=== PATIENT | male | born 1955 | race African-American/Black ===

== ENCOUNTER 2017-12-22 18:27 | Observation (INO) | payer BC ==
[2017-12-22 19:35] LABS: ABS Basophils 0.1 10^3/ul (0-0.2); ABS Eosinophils 0.3 10^3/ul (0-0.6); ABS Lymphocytes 1.8 10^3/ul (1.0-4.8); ABS Monocytes 0.5 10^3/ul (0-0.8); ABS Neutrophils 2.4 10^3/ul (1.5-7.7); ABS Nucleated RBC 0 10^3/ul; Eosinophil % 5.5 % (0-6); Hematocrit 46 % (42-52); Lymphocyte % 35.2 % (25-47); Mean Corpuscular HGB Conc 35 g/dl (31-36); Mean Corpuscular Hemoglobin 32 pg (27-31); Mean Corpuscular Volume 91 fL (80-94); Mean Platelet Volume 9.1 um3 (7.4-10.4); Nucleated Red Blood Cells % 0.1; Platelet Count 177 10^3/ul (150-450); Red Blood Count 5.05 10^6/ul (4.00-5.40); Red Cell Distribution Width 14 % (10.5-15)
[2017-12-22 19:54] LABS: EGFR Non-African American 53.7 (>60)
[2017-12-22 20:04] LABS: Urine Appearance Clear; Urine Blood Negative (Negative); Urine Color Straw; Urine Ketones Negative (Negative); Urine Protein Negative (Negative); Urine Specific Gravity 1.003 (1.010-1.030); Urine Urobilinogen Negative (Negative)
--- NOTE | 2017-12-22 20:04 | RAD ---
INDICATION: Cough COMPARISON: None TECHNIQUE: PA and lateral dual-energy views were obtained. FINDINGS: Bones/Soft Tissues: There are no acute bony findings. There is sternotomy. Additional clips project over the right upper chest. Cardiomediastinal: The cardiomediastinal silhouette is normal. Lungs: There are no infiltrates. Pleura: There are no pleural effusions. Other: None IMPRESSION: POSTOPERATIVE CHANGE. NO ACTIVE DISEASE
[2017-12-22] MEDS ORDERED: Iodixanol* (CONTRAST) 320 MG/ML 100 ML SDV IV ONE (20:10)
--- NOTE | 2017-12-22 20:11 | ED ---
Shortness of Breath - HPI Summary HPI Summary: Patient with history of CABG, stents, and valve replacement complains of exertional SOB 2 months, exertional chest tightness 2-3 weeks, and cough, congestion 2 weeks. Episode of chest tightness last night lasting 30-45 minutes on left side, no radiation. Complains of increase in urinary frequency. Patient denies fever, ear pain, CHRISTIANSON, sore throat, N/V/D, diaphoresis , abdominal pain, change in urine or BM. Medical history is CABG, stents, HTN. Patient has also been told he needs to be evaluated for diabetes, but has not followed up. C/o of recent increased urine output. Patient is nonsmoker, denies EtOH and illegal drugs or stimulants. Patient sees cardiology once a year, with last evaluation in the past 3 months. Patient states last stress test unknown, but believes it to be more than 2 years ago. Patient cardiology evaluations done by [facility]. - History of Current Complaint Chief Complaint: EDShortnessOfBreath Time Seen by Provider: 12/22/17 18:51 Hx Obtained From: Patient Onset/Duration: Gradual Onset Timing: Intermittent Episodes Lasting: Current Severity: Mild Associated Signs & Symptoms: Cough (Productive) - Risk Factors Pulmonary Embolism: Negative Cardiac: CAD, Diabetes, Hypertension - Allergy/Home Medications Allergies/Adverse Reactions: Allergies Allergy/AdvReac Type Severity Reaction Status Date / Time chocolate flavor Allergy Rash Verified 12/22/17 18:30 Home Medications: Home Medications Aspirin TAB* [Aspirin 325 MG TAB*] 325 mg PO DAILY 12/22/17 [History Confirmed 12/22/17] Lisinopril [Zestril 40 MG-] 40 mg PO DAILY 12/22/17 [History Confirmed 12/22/17] Metoprolol Tartrate TAB* [Lopressor TAB*] 50 mg PO BID 12/22/17 [History Confirmed 12/22/17] Potassium Chloride [Klor-Con Sprinkle] 10 meq PO DAILY 12/22/17 [History Confirmed 12/22/17] Spironolactone TAB* [Aldactone TAB*] 25 mg PO DAILY 12/22/17 [History Confirmed 12/22/17] PMH/Surg Hx/FS Hx/Imm Hx Endocrine/Hematology History: Denies: Hx Anticoagulant Therapy Cardiovascular History: Reports: Hx Coronary Artery Disease, Hx Valvular Heart Disease, Other Cardiovascular Problems/Disorders - VALVE REPLACED Respiratory History: Denies: Hx Lung Cancer History: Denies: Hx Dialysis Musculoskeletal History: Denies: Hx Gout EENT History: Denies: Hx Deafness Neurological History: Denies: Hx CVA Infectious Disease History: No Infectious Disease History: Denies: Traveled Outside the [place] in Last 30 Days - Social History Alcohol Use: None Substance Use Type: Reports: None Smoking Status (MU): Former Smoker Review of Systems Constitutional: Negative Eyes: Negative ENT: Negative Positive: Other Positive: Shortness Of Breath, Cough Gastrointestinal: Negative Positive: frequency Musculoskeletal: Negative Skin: Negative Neurological: Negative Psychological: Normal All Other Systems Reviewed And Are Negative: Yes Physical Exam Triage Information Reviewed: Yes Vital Signs On Initial Exam: Initial Vitals Temp Pulse Resp BP Pulse Ox 97.7 F 66 18 178/97 100 12/22/17 18:28 12/22/17 18:28 12/22/17 18:28 12/22/17 18:28 12/22/17 18:28 Vital Signs Reviewed: Yes Appearance: Positive: Well-Appearing Skin: Positive: Warm Head/Face: Positive: Normal Head/Face Inspection Eyes: Positive: Normal ENT: Positive: Normal ENT inspection Neck: Positive: Supple Respiratory/Lung Sounds: Positive: Clear to Auscultation Cardiovascular: Positive: RRR, Murmur. Negative: Leg Edema Left, Leg Edema Right Abdomen Description: Positive: Nontender Musculoskeletal: Positive: Normal Neurological: Positive: Normal Psychiatric: Positive: Normal AVPU Assessment: Alert - Ankur Coma Scale Best Eye Response: 4 - Spontaneous Best Motor Response: 6 - Obeys Commands Best Verbal Response: 5 - Oriented Coma Scale Total: 15 Diagnostics - Vital Signs Vital Signs Temp Pulse Resp BP Pulse Ox 12/22/17 19:17 69 22 162/92 95 12/22/17 19:00 71 18 100 12/22/17 18:47 72 15 154/97 99 12/22/17 18:46 28 12/22/17 18:28 97.7 F 66 18 178/97 100 - Laboratory Lab Results: Lab Results 12/22/17 12/22/17 12/22/17 Range/Units 19:25 19:25 19:25 WBC 5.0 (3.5-10.8) 10^3/ul RBC 5.05 (4.00-5.40) 10^6/ul Hgb 16.0 (14.0-18.0) g/dl Hct 46 (42-52) % MCV 91 (80-94) fL MCH 32 H (27-31) pg MCHC 35 (31-36) g/dl RDW 14 (10.5-15) % Plt Count 177 (150-450) 10^3/ul MPV 9.1 (7.4-10.4) um3 Neut % (Auto) 48.6 (38-83) % Lymph % (Auto) 35.2 (25-47) % [place] % (Auto) 9.5 H (0-7) % Eos % (Auto) 5.5 (0-6) % Baso % (Auto) 1.2 (0-2) % Absolute Neuts (auto) 2.4 (1.5-7.7) 10^3/ul Absolute Lymphs (auto) 1.8 (1.0-4.8) 10^3/ul Absolute Monos (auto) 0.5 (0-0.8) 10^3/ul Absolute Eos (auto) 0.3 (0-0.6) 10^3/ul Absolute Basos (auto) 0.1 (0-0.2) 10^3/ul Absolute Nucleated RBC 0 10^3/ul Nucleated RBC % 0.1 D-Dimer, Quantitative 710 H (Less Than 230) ng/mL Sodium 139 (135-145) mmol/L Potassium 3.8 (3.5-5.0) mmol/L Chloride 104 (101-111) mmol/L Carbon Dioxide 27 (22-32) mmol/L Anion Gap 8 (2-11) mmol/L BUN 13 (6-24) mg/dL Creatinine 1.34 H (0.67-1.17) mg/dL Est GFR ( Amer) 64.9 (>60) Est GFR (Non-Af Amer) 53.7 (>60) BUN/Creatinine Ratio 9.7 (8-20) Glucose 112 H (70-100) mg/dL Lactic Acid (0.5-2.0) mmol/L Calcium 9.6 (8.6-10.3) mg/dL Total Bilirubin 0.50 (0.2-1.0) mg/dL AST 16 (13-39) U/L ALT 10 (7-52) U/L Alkaline Phosphatase 73 (34-104) U/L Troponin I Pending C-Reactive Protein 15.82 H (<8.01) mg/L B-Natriuretic Peptide ( - 100) pg/mL Total Protein 7.9 (6.4-8.9) g/dL Albumin 3.8 (3.2-5.2) g/dL Globulin 4.1 H (2-4) g/dL Albumin/Globulin Ratio 0.9 L (1-3) 12/22/17 12/22/17 Range/Units 19:25 19:25 WBC (3.5-10.8) 10^3/ul RBC (4.00-5.40) 10^6/ul Hgb (14.0-18.0) g/dl Hct (42-52) % MCV (80-94) fL MCH (27-31) pg MCHC (31-36) g/dl RDW (10.5-15) % Plt Count (150-450) 10^3/ul MPV (7.4-10.4) um3 Neut % (Auto) (38-83) % Lymph % (Auto) (25-47) % [place] % (Auto) (0-7) % Eos % (Auto) (0-6) % Baso % (Auto) (0-2) % Absolute Neuts (auto) (1.5-7.7) 10^3/ul Absolute Lymphs (auto) (1.0-4.8) 10^3/ul Absolute Monos (auto) (0-0.8) 10^3/ul Absolute Eos (auto) (0-0.6) 10^3/ul Absolute Basos (auto) (0-0.2) 10^3/ul Absolute Nucleated RBC 10^3/ul Nucleated RBC % D-Dimer, Quantitative (Less Than 230) ng/mL Sodium (135-145) mmol/L Potassium (3.5-5.0) mmol/L Chloride (101-111) mmol/L Carbon Dioxide (22-32) mmol/L Anion Gap (2-11) mmol/L BUN (6-24) mg/dL Creatinine (0.67-1.17) mg/dL Est GFR ( Amer) (>60) Est GFR (Non-Af Amer) (>60) BUN/Creatinine Ratio (8-20) Glucose (70-100) mg/dL Lactic Acid 1.2 (0.5-2.0) mmol/L Calcium (8.6-10.3) mg/dL Total Bilirubin (0.2-1.0) mg/dL AST (13-39) U/L ALT (7-52) U/L Alkaline Phosphatase (34-104) U/L Troponin I C-Reactive Protein (<8.01) mg/L B-Natriuretic Peptide 84 ( - 100) pg/mL Total Protein (6.4-8.9) g/dL Albumin (3.2-5.2) g/dL Globulin (2-4) g/dL Albumin/Globulin Ratio (1-3) Result Diagrams: 12/22/17 19:25 12/22/17 19:25 Lab Statement: Any lab studies that have been ordered have been reviewed, and results considered in the medical decision making process. - Radiology cxr Xray Interpretation: No Acute Changes Radiology Interpretation Completed By: Radiologist - CT cta chest CT Interpretation: No Acute Changes CT Interpretation Completed By: Radiologist - EKG 1 Cardiac Rate: NL EKG Rhythm: Sinus Rhythm ST Segment: Non-Specific Ectopy: None EKG Interpretation: rbbb Course/Dx - Course Course Of Treatment: Patient with history of CABG, stents, and valve replacement complains of exertional SOB 2 months, exertional chest tightness 2 -3 weeks, and cough, congestion 2 weeks. Episode of chest tightness last night lasting 30-45 minutes on left side, no radiation. Complains of increase in urinary frequency. Patient denies fever, ear pain, CHRISTIANSON, sore throat, N/V/D, diaphoresis, abdominal pain, change in urine or BM. Medical history is CABG, stents, HTN. Patient has also been told he needs to be evaluated for diabetes, but has not followed up. C/o of recent increased urine output. Patient is nonsmoker, denies EtOH and illegal drugs or stimulants. Patient sees cardiology once a year, with last evaluation in the past 3 months. Patient states last stress test unknown, but believes it to be more than 2 years ago. Patient cardiology evaluations done by [facility]. Vital signs within normal limits and stable. Elevated d-dimer, labs otherwise unremarkable. CXR negative , CTA chest negative. Patient was offered choice of admission or ongoing exertional SOB and intermittent chest tightness with stress test tomorrow, or discharge home to arrange outpatient stress test with his coil binder. Patient opted to remain for admission. - Diagnoses Provider Diagnoses: Shortness of breath, Respiratory infection - Physician Notifications Discussed Care of Patient With: Josh Stinson Time Discussed With Above Provider: 21:28 Instructed by Provider To: Admit As Observation Discharge - Sign-Out/Discharge Documenting (check all that apply): Discharge/Admit/Transfer - Discharge Plan Condition: Stable Disposition: ADMITTED TO [facility] Referrals: No Primary Care Phys,NOPCP [Primary Care Provider] - - Billing Disposition and Condition Condition: STABLE Disposition: Admitted to [facility]
--- NOTE | 2017-12-22 20:39 | RAD ---
INDICATION: Chest pain. Short of breath. Evaluate for pulmonary embolus. COMPARISON: Chest x-ray December 22, 2017 TECHNIQUE: Axial source images were obtained from the thoracic inlet to the hemidiaphragms following administration of [address] angiographic technique was utilized. Coronal and sagittal reconstructed images were acquired. CHEST FINDINGS: Neck/thyroid: The visualized neck to include the thyroid appear normal. Chest wall: There are no acute abnormalities of the bony thorax or chest wall. There is sternotomy. There is no supraclavicular, infraclavicular, or axillary lymphadenopathy. Lungs : There are no pulmonary parenchymal masses or infiltrates. The pulmonary interstitium appears normal. There are no endobronchial lesions. Cardiomediastinal structures: There is no CT evidence of acute pulmonary embolic disease. The heart is normal in size. There are atherosclerotic calcifications. There is aortic valvular surgery. There is no pericardial effusion. There is no evidence of aortic aneurysm or dissection. There is no mediastinal or hilar adenopathy. The esophagus appears normal. Pleura : There are no pleural-based masses or effusions. Other: Limited views the upper abdomen show bilateral parapelvic cysts. There is cholecystectomy. There is a small hiatal hernia. IMPRESSION: NO CT EVIDENCE OF ACUTE PULMONARY EMBOLIC DISEASE. LUNGS CLEAR
[2017-12-22] MEDS ORDERED: Acetaminophen TAB* 325 MG PO PRN (21:52)
[2017-12-22] MEDS: Heparin VIAL(*) 5000 UNITS/ML VIAL (FIVE THOUSAND) SUBCUT SCH (23:16)
[2017-12-22] MEDS ORDERED: Benzonatate CAP* 100 MG PO PRN (23:28)
--- NOTE | 2017-12-22 23:47 | HP ---
CC: Dr. Rahman, [place] * [facility] MEDICINE HISTORY AND PHYSICAL: DATE OF ADMISSION: 12/22/17 PRIMARY CARE PHYSICIAN: Dr. Rahman [place]. ATTENDING PHYSICIAN: Dr. Josh Stinson * (dictation provided by Carrie Pastor NP). CHIEF COMPLAINT: Shortness of breath and chest pain. HISTORY OF PRESENT ILLNESS: Mr. Moura is a 62-year-old male with a past medical history of stent placement with aortic valve replacement with a bioprosthetic valve about 6 years ago, continued to be followed by glue drier operator in [place] as well as hypertension, who presents to the hospital today with concern for worsening shortness of breath over the two weeks now with chest discomfort. Mr. Moura states he was last evaluated by his glue drier operator in [place] about 2 to 3 months ago. He states that at that point, he was feeling well and there were no changes made with his plan of care. About 2 weeks ago, he began to have a cough. He felt that he was more short of breath going up and down stairs. Over the intervening 2 weeks, the cough and shortness of breath have worsened steadily. He has not had any nasal congestion or stuffiness, but is noting that now that he is here in the emergency room today. He has been noticing is that he is more and more short of breath with less and less activity. He states he is only able to work around the home for several minutes before needing to stop and rest. This is unusual and new for him. Yesterday, he developed some chest pain described as a tightness in the center of his chest, radiating over into the left side. This resolved spontaneously after a few minutes. Today, he was at home and states that he just did not feel at all like himself, although he is unable to really characterize that for any better and decided to come to the emergency room for evaluation. In the emergency room, Mr. Moura had a troponin, which was negative and EKG which showed no evidence of ischemia. His chest x-ray showed no acute abnormality. His ddimer was 710 and a CTA of the chest showed no pulmonary embolism. He is currently chest pain free and denies shortness of breath at rest. PAST MEDICAL HISTORY: 1. Hypertension. 2. History of coronary artery disease with stent placement about 6 years ago. 3. Valve replacement to the aorta, bioprosthetic. 4. History of back surgery for fusion of L5-S1 in March 2017. 5. History of knee replacement. 6. Bilateral carpal tunnel surgery. MEDICATIONS: As outpatient are: 1. Aspirin 325 mg p.o. daily. 2. Lisinopril 40 mg p.o. daily. 3. Metoprolol tartrate 50 mg p.o. b.i.d. 4. Potassium chloride 10 mEq p.o. daily. 5. Spironolactone 25 mg p.o. daily. ALLERGIES: To CHOCOLATE FLAVOR. FAMILY HISTORY: The patient reports his mother had multiple heart attacks, had a valve replacement and ultimately from a stroke. His father was healthy until he of old age. SOCIAL HISTORY: No report of alcohol or drug use. The patient states he smoked very briefly when he was young. He states his , Meena is the healthcare proxy. REVIEW OF SYSTEMS: A 14-point review of systems was completed with Mr. Moura and all those not mentioned above were negative. PHYSICAL EXAMINATION GENERAL: Mr. Moura is lying in the bed with his at the bedside, in no acute distress. VITAL SIGNS: Temperature 97.7, pulse rate 68, respiratory rate 22, O2 saturation 95% on room air, blood pressure 162/92. LUNGS: Clear to auscultation bilaterally. No accessory muscle use and good aeration. HEART: S1, S2. No murmurs, rubs, or gallops, and regular. ABDOMEN: Soft, nontender with bowel sounds positive x4. EXTREMITIES: No cyanosis or edema. NEUROLOGIC: He is alert, he is oriented x3 and moves all extremities equally. There is no facial asymmetry or focal weakness. Extraocular movements are intact. SKIN: Intact. DIAGNOSTIC STUDIES/LAB DATA: WBC 5.0, hemoglobin 16.0, hematocrit 46, platelet count 177. D-dimer 710. Sodium 139, potassium 3.8, chloride 104, serum bicarbonate 27, BUN 13, creatinine 1.34, glucose 112, CRP 15.82. Urine shows no evidence of infection. Chest x-ray shows no acute intrathoracic process. Chest thorax CTA shows no CT evidence of acute pulmonary embolic disease. Lungs are clear. EKG shows sinus rhythm with a right bundle-branch block and no evidence of ischemia. ASSESSMENT AND PLAN: Mr. Moura is a 62-year-old male with a past medical history of stent placement about 6 years ago as well as a bioprosthetic aortic valve replacement, who presents to the hospital today with concern for worsening dyspnea on exertion associated with a cough and now with some nasal congestion without fever. My plans are for observation in the hospital for the followin. Dyspnea on exertion and chest pain. Certainly, the patient has some congestion today and has had a cough, but this has not been a prominent feature throughout his description of his symptoms. He seems to be more evidencing progressive dyspnea on exertion now with chest discomfort. The patient warrants observation stay in the hospital for rule out of acute coronary syndrome and further evaluation of his cardiac function with 2 troponins, telemetry monitoring, chemical nuclear stress test, and transthoracic echocardiogram. At this time, the patient is chest pain free and his workup thus far has been negative. Again, a CTA chest is negative and shows no evidence of infiltrate or infection. 2. Hypertension. Continue home medications. His blood pressure is slightly elevated, but this is in the setting of being in the emergency room. Adjustments can be made to his medications as necessary prior to discharge if his blood pressure remains elevated. 3. Code status is full code. TIME SPENT: Approximately 60 minutes was spent on admission of this patient, more than half the time spent with the patient at the bedside reviewing the events leading up to this hospitalization, performing the physical examination, and reviewing my plan of care. CARRIE PASTOR NP [id number]/[facility] #: [id number] NAVI
[2017-12-23] MEDS: Heparin VIAL(*) 5000 UNITS/ML VIAL (FIVE THOUSAND) SUBCUT SCH ×2 (06:03→14:06)
[2017-12-23] MEDS ORDERED: Metoprolol Tartrate TAB* 50 mg PO SCH (09:00)
[2017-12-23] MEDS ORDERED: Spironolactone TAB* 25 MG PO SCH (09:00)
[2017-12-23] MEDS ORDERED: Aspirin TAB* 325 MG PO SCH (09:00)
[2017-12-23] MEDS ORDERED: Lisinopril TAB* 10 MG PO SCH (09:00)
[2017-12-23] MEDS ORDERED: Potassium Chlor TAB* 10 MEQ TAB.ER PO SCH (09:00)
[2017-12-23] MEDS ORDERED: Regadenoson* 0.4 MG/5 ML SYRINGE ONE (09:40)
--- NOTE | 2017-12-23 09:42 | ECHO ---
Patient: KEYSHA RUSH [facility] Rec#: [id number] : 1955 Date: 12/23/2017 Age: 62y Height: 180.34 cm / 71.0 in Weight: 110.68 kg / 243.9 lbs Sex: M BSA: 2.29 Room#: [facility] Admit Date#: 12/22/2017 Type: Inpatient Referring: Carrie Pastor NP Reading: Isaac Macedo MD [employer] Laborer: Aleksandra BeasleyRDCS,RDMS Transthoracic Echocardiogram Indication: CP, SOB BP: 131/78 HR: 64 Rhythm: NSR Findings History: AOV replacement, CAD, PCI, HTN Technical Comments: The study quality is fair. Left Ventricle: The left ventricular chamber size is normal. Moderate concentric left ventricular hypertrophy is observed. Global left ventricular wall motion and contractility are within normal limits. There is normal left ventricular systolic function. The estimated ejection fraction is 55-60%. Abnormal left ventricular diastolic function is observed. Left Atrium: The left atrium is slightly dilated. Right Ventricle: The right ventricular chamber size and systolic function are within normal limits. The right ventricle wall thickness is mildly increased. Right Atrium: The right atrial cavity size is normal. Aortic Valve: There is no evidence of aortic regurgitation. The mean gradient of the aortic valve is 3.9 mmHg. The aortic valve area, by peak velocities, is calculated at 2.3 cm2. A bio-prosthetic aortic valve is present. The bio-prosthetic aortic valve appears to be functioning normally. Mitral Valve: The mitral valve leaflets appear normal. There is no evidence of mitral regurgitation. There is no evidence of mitral stenosis. Tricuspid Valve: The tricuspid valve leaflets are normal. There is trace tricuspid regurgitation. No pulmonary hypertension is noted. Pulmonic Valve: The pulmonic valve appears normal. There is a trace pulmonic regurgitation. Pericardium: There is no significant pericardial effusion. Aorta: There is no dilatation of the ascending aorta. There is no dilatation of the aortic arch. There is mild dilatation of the aortic root. Pulmonary Artery: The main pulmonary artery is not well visualized. Venous: The inferior vena cava is not visualized. Summary: There was not any prior study for comparison. Conclusions Moderate concentric left ventricular hypertrophy is observed. Global left ventricular wall motion and contractility are within normal limits. There is normal left ventricular systolic function. The estimated ejection fraction is 55-60%. The bio-prosthetic aortic valve appears to be functioning normally. The mean gradient of the aortic valve is 3.9 mmHg. There is no evidence of mitral regurgitation. There is trace tricuspid regurgitation. There is no significant pericardial effusion. Measurements Name Value Normal Range RVIDd (AP) 2D 2.7 cm (0.9 - 2.6) RVDdMajor (2D) 3.5 cm (2.2 - 4.4) RAd ISD 4CH 4.9 cm (3.4 - 4.9) RA (A4C)W 4 cm (2.9 - 4.6) IVSd (2D) 1.5 cm (0.6 - 1) LVPWd (2D) 1.5 cm (0.6 - 1) LVIDd (2D) 3.8 cm (3.6 - 5.4) LVIDs (2D) 2.2 cm - LV FS (2D) 43 % (25 - 45) Aortic Annulus 2.1 cm (1.4 - 2.6) Ao root diameter (2D) 3.7 cm (2.1 - 3.5) Ascending Ao 3.1 cm (2.1 - 3.4) Aortic arch 2.6 cm (1.8 - 3.4) LA dimension (AP) 2D 4.2 cm (2.3 - 3.8) LAd ISD 4CH 5.6 cm (2.9 - 5.3) LA ISD 4CH W 4 cm (2.5 - 4.5) Name Value Normal Range LA ESV SP 4CH (A/L) 64.24 ml - LA ESV SP 2CH (A/L) 54.3 ml - LA ESV BP (A/L) 60.77 ml - LA ESV BP (A/L) index 26 ml/m2 - LA ESV SP 4CH (MOD) 58.91 ml - LA ESV SP 2CH (MOD) 50.63 ml - Name Value Normal Range MV E-wave Vmax 0.7 m/sec - MV deceleration time 266 msec - MV A-wave Vmax 0.7 m/sec - MV E:A ratio 1 ratio - LV septal e' Vmax 0.05 m/sec - LV lateral e' Vmax 0.06 m/sec - LV E:e' septal ratio 16 ratio - LV E:e' lateral ratio 12 ratio - Name Value Normal Range AV Vmax 1.4 m/sec - AV VTI 27 cm - AV peak gradient 8 mmHg - AV mean gradient 3.9 mmHg - LVOT diameter 2 cm - LVOT Vmax 1 m/sec - LVOT VTI 19 cm - LVOT peak gradient 4 mmHg - LVOT mean gradient 2 mmHg - DOI (VTI) 0.7 ratio - JASON (continuity Vmax) 2.3 cm2 - JASON (continuity VTI) 2.2 cm2 - DAVID Vmax 0.6 m/sec - Name Value Normal Range TR Vmax 2.1 m/sec - TR peak gradient 18 mmHg - RAP 3 mmHg - RVSP 21 mmHg - Name Value Normal Range PV Vmax 0.6 m/sec - PV peak gradient 1.4 mmHg -
[2017-12-23 13:01] VITALS: BP 146/68
--- NOTE | 2017-12-23 13:25 | RAD ---
Edited for charges. INDICATION: Chest pain COMPARISON: None TECHNIQUE: A single day SPECT protocol was utilized. Rest images were acquired following the intravenous injection of 10.8 millicuries of technetium 99m tetrofosmin. Exercise stress images were acquired following the intravenous administration of 25.7 millicuries of technetium 99m tetrofosmin. The patient was exercised to a peak heart rate of 169 which is greater than 100 of age predicted maximum. FINDINGS: There are no defects of the stress-induced or fixed nature. The cardiac chamber size is normal. There are no wall motion abnormalities. The ejection fraction is calculated at 72 percent during stress. IMPRESSION: NO STRESS-INDUCED ISCHEMIA. NORMAL WALL MOTION AND CONTRACTILITY ASSESSMENT: LOW-RISK Based on imaging criteria from ACC/AHA 2002 Guideline Update for the Management of Patients With Chronic Stable Angina Table 23. Noninvasive Risk Stratification. MTDD
--- NOTE | 2017-12-24 09:34 | DS ---
DISCHARGE SUMMARY: DATE OF ADMISSION: 12/22/17 DATE OF DISCHARGE: 12/23/17 PRIMARY PHYSICIAN: Dr. Rahman in [place], [place], whom the patient will follow up with. PRIMARY DIAGNOSIS: Dyspnea on exertion. SECONDARY DIAGNOSES: Include: 1. Hypertension. 2. History of coronary artery disease, status post percutaneous coronary intervention, bioprosthetic aortic valve replacement. MEDICATIONS ON DISCHARGE: Unchanged from admission include: 1. Aspirin 325 mg daily. 2. Lisinopril 40 mg daily. 3. Metoprolol tartrate 40 mg twice daily. 4. Potassium chloride 10 mEq daily. 5. Spironolactone 25 mg daily. PROCEDURES PERFORMED DURING HOSPITAL STAY: Chemical stress with nuclear imaging , impression: No stress-induced ischemia, normal wall motion and contractility. Assessment: Low risk. IMAGING PERFORMED DURING HOSPITAL STAY: CTA chest and thorax, impression: No CT evidence of acute pulmonary embolism disease. The lungs are clear. Transthoracic echocardiogram, impression: LVEF is estimated at 55% to 60%, abnormal left ventricular diastolic function is observed. Bioprosthetic valve appears normally functioning with a mean gradient of 3.9 mmHg. No evidence of mitral regurgitation. Trace TR. No significant pericardial effusion. PERTINENT LABORATORY DATA: Troponin I peaked at 0.02. BNP 84. HISTORY OF PRESENT ILLNESS AND HOSPITAL COURSE: This is a 62-year-old man with past medical history as outlined in the history of present illness on the day of admission, who presented to the hospital with about 1 year of increasing dyspnea on exertion, which had gotten acutely worse over the last 2 weeks. He noticed that he previously walked about a mile and half mile, now he is getting dyspnea on exertion while walking up a flight of stairs. The night prior to presentation he some discomfort that lasted in his chest, resolved spontaneously after about 30 minutes. His troponins were normal in the hospital stay and he had no events on telemetry. He underwent a stress test that did not indicate any reversible areas of ischemia. His echocardiogram did indicate some diastolic heart dysfunction, although he is not clinically volume overloaded and his CTA did not indicate any fluid and/or consolidations in his lung. There was no pulmonary embolism identified on a CTA. He was ambulated with a pulse oximeter and did not demonstrate oxygen desaturation. He had no additional chest discomfort during the course of the hospital stay. Of note, I did notice a thick non-split S2 in the left upper sternal border on physical exam. Pulmonary hypertension would fit this patient's presentation; however, no evidence of this on his transthoracic echocardiogram. The patient's partner was present and did not indicate that he has any snoring or episodes of apnea overnight; however, I did recommend a sleep study to be performed upon discharge. The patient prefers to follow up with his PCP in [place] and will schedule his own appointment. No medication changes were made on discharge. Reasons to return to the hospital including but not limited to recurrent or worsening symptoms including worsening difficulty breathing, dyspnea on exertion , chest discomfort or pain, lightheadedness, nausea, vomiting, loss of consciousness, bleeding from any source, or inability to obtain or tolerate medications were discussed with the patient and his partner; they acknowledged understanding. TIME SPENT: Greater than 60 minutes was spent on discharge of this patient; greater than half was spent [id number] with the patient. [id number] #: [id number] MTDD
== END 2017-12-23 15:09 | disposition home or self-care (01) ==
LOC: ED 18:27 → MEDTELE 21:34
PROVIDERS: ADMIT Hospitalist; ATTEND Internal Medicine
DX: R06.00 Dyspnea, unspecified (principal); R06.02 Shortness of breath; I10 Essential (primary) hypertension; I25.10 Atherosclerotic heart disease of native coronary artery without angina pectoris; Z95.2 Presence of prosthetic heart valve; Z79.82 Long term (current) use of aspirin; Z87.891 Personal history of nicotine dependence
CPT/HCPCS: 36415; 71046; 71275; 78452; 80053; 81003; 83605; 83880; 84484; 85025; 85379; 86140; 87040; 93005; 93017; 93306; 99283; A9270-GY; A9502; G0378; J1644; J2785; Q9967